=== PATIENT | female | born 1955 | race Caucasian/White ===

== ENCOUNTER 2025-08-16 07:42 | Day surgery (SDC) | payer MEDICARE, OTHER ==
--- NOTE | 2025-08-05 13:56 | ELECTROCARDIOGRAPH REPORT ---
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 GILBERTO James Measurements Intervals [place] Rate: 66 P: 41 IN: 176 QRS: 59 QRSD: 104 T: 59 QT: 404 QTc: 424 Interpretive Statements Sinus rhythm Borderline low voltage, extremity leads Electronically Signed On 08-05-2025 16:51:[address] GILBERTO James Please click the below link to view image of tracing.
[2025-08-05 14:05] LABS: MEAN PLATELET VOLUME 7.7 FL (7.4-10.4); PRE OP HEMATOCRIT 40.3 % (35.0-45.0); PRE OP HEMOGLOBIN 13.5 g/dL (12.0-16.0); PRE OP PLATELET COUNT 269 X10'3 (140-440); PRE OP WHITE BLOOD COUNT 7.2 10'3 (4.8-10.8); RED CELL DISTRIBUTION WIDTH 14.3 % (11.5-14.5)
[2025-08-05 14:21] LABS: CREATININE 0.85 MG/DL (0.40-0.90); PRE OP ALT 36 U/L (30-65); PRE OP ANION GAP 7 (8-16); PRE OP AST 23 U/L (10-37); PRE OP BILIRUB, TOTAL 0.5 MG/DL (0.0-1.0); PRE OP POTASSIUM 4.2 MMOL/L (3.4-5.1); PRE OP SODIUM 141 MMOL/L (135-145); TOTAL CARBON DIOXIDE 33.3 MMOL/L (24-32); eGFR 66 ML/MIN
[2025-08-05 14:28] LABS: PRE OP GLUCOSE 244 MG/DL (70-104)
[2025-08-16] VITALS (11 sets, daily range): BP systolic 134–145; BP diastolic 80–87; PULSE 57–64; RESP 11–16; TEMP 97.3; O2SAT 95–100
[~2025-08-16] VITALS: Ht 165.1 cm; Wt 62.8 kg
[2025-08-16] MEDS: ceFAZolin 2gm/dext,iso 50mL 50 ML IV ONE (05:30)
[~2025-08-16 07:42] MED LIST: ALPR0.5T8 PO; ASCO-134 PO; BUPIVAcaine/PF 2.5mg/ml (0.25%) 10ml vial ONE; CALCIUM; CHOL100046 PO; ESTR42.53 VG; EZET10TA6 PO; KRILL OIL; LACT1CAP65 PO; LIDOcaine 2% (20mg/ml) 5ml vial ONE; MAGN400C PO; MIRA25TA PO; ROSU5TAB51 PO; SPIR50TA5 PO; VIT K; VIT1CAPS46 PO
[2025-08-16] MEDS: ringers solution, lacted 1,000 ML IV SCH (08:23)
[2025-08-16] MEDS ORDERED: BUPIVAcaine/PF 2.5mg/ml (0.25%) 10ml vial ONE (08:40)
[2025-08-16] MEDS ORDERED: ondansetron/PF 4mg/2ml inj IV PRN (09:15)
[2025-08-16] MEDS ORDERED: acetaminophen 1,000mg/100ml IV 100 ML IV PRN (09:15)
[2025-08-16] MEDS ORDERED: hydrALAZINE 20mg/ml inj. IV PRN (09:15)
[2025-08-16] MEDS ORDERED: HYDROmorphone/PF 0.2 MG/ML SYRINGE IV PRN (09:15)
[2025-08-16] MEDS ORDERED: fentaNYL/PF 50MCG/1 ML 2ML syringe IV PRN ×2 (09:15)
[2025-08-16] MEDS ORDERED: labetalol 20mg/4ml (5mg/ml) syringe IV PRN (09:15)
[2025-08-16] MEDS ORDERED: ringers solution, lacted 1,000 ML IV SCH (09:15)
[2025-08-16] MEDS ORDERED: midazolam 1 mg/ML 2ml injection ONE ×2 (10:05→10:09)
[2025-08-16] MEDS ORDERED: LIDOcaine 0.5% (5mg/ml) 50ml vial ONE (10:05)
[2025-08-16] MEDS ORDERED: propofol inj 20 ML IV ONE ×2 (10:38)
[2025-08-16] MEDS: BUPIVAcaine/PF 2.5mg/ml (0.25%) 10ml vial IJ ONE (10:42)
[2025-08-16] MEDS: LIDOcaine 2% (20mg/ml) 5ml vial SQ ONE (10:42)
--- NOTE | 2025-08-16 16:57 | OPERATIVE REPORT ---
Operative Report Providers to ~ Date of Procedure: Aug 16, 2025 Pre-Operative Diagnosis: left thumb CMC joint arthritis Post-Operative Diagnosis SAME as PRE-Op Procedure Performed left thumb ligament reconstruction tendon interposition arthroplasty Surgeon: Reina Avalos MD Supervisor Covering And Lining none Anesthesiologist: Quintin Huang Type of Anesthesia: Regional Findings: Estimated Blood Loss: none Specimen Removed: none Description of Procedure: The patient is a 70 year-old with left thumb carpometacarpal joint pain and arthritis refractory to nonsurgical treatment. Surgery is indicated to relieve symptoms after failure of conservative treatment. Risks and benefits and potential complications were discussed with the patient. Some of the potential complications include but are not limited to infection, bleeding, nerve or vessel damage, numbness over the site of the incision. Thumb stiffness and incomplete relief of pain. The patient agrees to proceed. After the block was given in the operating room proper timeout procedure was observed. The arm was then prepped and draped in the usual manner. The first incision was made over the flexor carpi radialis tendon in the forearm, 8cm proximal to the wrist crease. The tendon sheath was opened, and the tendon was transected at the musculotendinous junction. The wound was closed with Monocryl suture. An incision was made over the dorsal thumb metacarpal, curving proximally toward the wrist crease. Cutaneous nerves were mobilized, and an arthrotomy was made around the trapezium, which was then removed using the sagittal saw and the rongeur. A diagonal tunnel was made in the metacarpal using the 4mm round qamar. The FCR tendon was pulled subcutaneously into the thumb wound, leaving it attached distally to the base of the second metacarpal. The proximal end of the tendon was passed through the bone tunnel, pulled tight, and sutured to itself and the periosteum using 4-0 Fiberwire suture. This completed the SUSPENSIONPLASTY portion of the procedure, the remainder of the tendon was folded upon itself and sutured into the space created by the trapezium excision using a deep capsular stitch. This completed the tendon INTERPOSITION portion of the procedure. The capsule was closed over the graft with Vicryl suture, and the skin with Monocryl and Steri-strips. Marcaine was injected, and a sterile dressing was applied, along with a plaster thumb spica splint. The tourniquet was removed and the hand perfused well. The patient was taken to the recovery room in stable condition. Sponge and needle counts were correct TAMMI AVALOS Jr., MD Aug 16, 2025 16:57
== END 2025-08-16 12:52 | disposition home or self-care (01) ==
LOC: PAS 07:42
PROVIDERS: ATTEND Orthopaedic Surgery Hand Surgery
DX: M18.12 Unilateral primary osteoarthritis of first carpometacarpal joint, left hand (principal); E78.00 Pure hypercholesterolemia, unspecified; R94.31 Abnormal electrocardiogram [ECG] [EKG]; Z85.828 Personal history of other malignant neoplasm of skin
CPT/HCPCS: 25448; 36415; 80053; 82948; 85025; 93005; A4215; A4565; A6449; A7000; J2003; J2250; J2704; J3490; J7030; J7120; Z7506; Z7512; Z7610